=== PATIENT | male | born 1985 | race Caucasian/White ===

== ENCOUNTER 2018-10-06 22:39 | Emergency (ER) | payer MEDICAID ==
--- NOTE | 2018-10-06 22:41 | EDPHY ---
H & P Source: Patient, Police, RN/MD, EMS Exam Limitations: No limitations - Personal History Tetanus Vaccine Date: 2013 - Medical/Surgical History Hx Asthma: No Hx Chronic Respiratory Disease: No Hx Diabetes: No Hx Cardiac Disease: No Hx Renal Disease: No Hx Cirrhosis: No Hx Alcoholism: No Hx HIV/AIDS: No Hx Splenectomy or Spleen Trauma: No Other PMH: Chronic back pain - Social History Smoking Status: Heavy smoker Time Seen by Provider: 10/06/18 22:40 HPI/ROS: HPI: This is a 33-year-old male who presents with Chief Complaint: Numbness in both arms, panic attack Location: Both arms Quality: Numbness Duration: Prior to arrival Signs and Symptoms: +shortness of breath at rest, + shortness of breath on exertion, no cough, no chest pain, no palpitations, no lower extremity edema, no wheezing, no orthopnea, no paroxysmal nocturnal dyspnea, no fever, no injury/ trauma, no hemoptysis, + carpal pedal spasms Timing: Acute Severity: Moderate Context: Patient presents accompanied by [facility] Police for medical clearance. Patient was pulled over this evening while running to the store to buy cigarettes. His tail light was out. Patient reports that he felt fine until he got into the back of the police car. Reports that his hands were handcuffed behind his back and both of his arms went numb. He reports that the numbness and tingling are slowly improving. Patient then reports that he started to feel lightheaded and dizzy and short of breath. He started to breathe rapidly. Patient denies any fever, upper respiratory symptoms, cough, lower extremity edema. No recent long distance travel. Grandmother cardiac history but patient is not sure what type. Reports he had a diagnosis of hypertension while in nursing home but no longer takes blood pressure medications. Patient asking for a drink of water during the interview. Modifying Factors: None Comment: ROS: A comprehensive 10 system review of systems is otherwise negative aside from elements mentioned in the history of present illness. MEDICAL/SURGICAL/SOCIAL HISTORY: Medical history: Chronic back pain, anxiety disorder, panic attacks Surgical history: Denies Social history: Heavy tobacco user. Uses alcohol. . CONSTITUTIONAL: Anxious, mild distress, male who appears nontoxic in appearance, awake and alert HEENT: Atraumatic and normocephalic, PERRL, EOMI. Nares patent; no rhinorrhea; no nasal mucosal edema. Tympanic membranes clear. Oropharynx clear, no exudate and moist pink mucosa. Airway patent. No lymphadenopathy. No meningismus. Cardiovascular: Normal S1/S2, tachycardia, regular rhythm, without murmur rub or gallop. PULMONARY/CHEST: Symmetrical and nontender. Clear to auscultation bilaterally. Good air movement. No accessory muscle usage. Tachypnea. ABDOMEN: Soft, nondistended, nontender, no rebound, no guarding, no peritoneal signs, no masses or organomegaly. No CVAT. EXTREMITIES: 2/2 pulses, bilateral upper extremity strength 5/5, no deformities , no clubbing, no cyanosis or edema. NEUROLOGICAL: no focal neuro deficits. GCS 15. Cranial nerves 2-12 grossly intact. SKIN: Warm and dry, tattoos covering body, no erythema. no rash. Good capillary refill. (Tessie Carvajal) Constitutional: Initial Vital Signs Temperature (C) 36.4 C 10/06/18 22:40 Heart Rate 104 H 10/06/18 22:40 Respiratory Rate 18 10/06/18 22:40 Blood Pressure 143/94 H 10/06/18 22:40 O2 Sat (%) 100 10/06/18 22:40 O2 Delivery Mode Room Air Allergies/Adverse Reactions: amoxicillin Allergy (Mild, Verified 10/06/18 22:50) Rash Home Medications: Medication Instructions Recorded NK [No Known Home Meds] 06/21/16 Medical Decision Making ED Course/Re-evaluation: Vital signs reviewed and show tachycardia upon arrival. EKG my read shows sinus tachycardia but no acute ischemic changes, no heart block, no arrhythmias. No indication for chest xray or laboratory studies. Monitored for 2 hr in the emergency room. Sleeping the majority of the time and asking for something to eat. Blood pressure and heart rate improved. Appropriate for discharge to senior care. This patient was seen under the supervision of my secondary supervising physician. I evaluated care for this patient with attending. Discussed this patient with Dr. Bernal. (Tessie Carvajal) PHYSICIAN DOCUMENTATION: The patient was evaluated and managed by the Physician Rail Setter. My co- signature indicates that I have reviewed this chart and I agree with the findings and plan of care as documented. I am the secondary supervising physician. (Svitlana Bernal) Differential Diagnosis: Shortness of breath including but not limited to pulmonary infectious process, COPD, asthma, pulmonary embolus and congestive heart failure. (Tessie Carvajal) - Data Points Medications Given: Discontinued Medications Ibuprofen (Motrin) 800 mg PO EDNOW ONE Stop: 10/06/18 23:50 Last Admin: 10/06/18 23:53 Dose: 800 mg Departure - Departure Disposition: Home, Routine, Self-Care Clinical Impression: Anxiety hyperventilation Condition: Good Instructions: Hyperventilation (ED) Additional Instructions: Patient is medically cleared to be discharged to senior care. See [facility] for follow-up instructions and prescriptions. Referrals: [facility],. [Clinic] - Follow Up Only If Needed
[2018-10-06] MEDS ORDERED: IBUPROFEN 800 MG TAB PO ONE (23:49)
[2018-10-06 23:56] VITALS: BP 131/91
--- NOTE | 2018-10-07 04:35 | CPEKG ---
Test Reason : OPEN Blood Pressure : / mmHG Vent. Rate : 106 BPM Atrial Rate : 106 BPM P-R Int : 140 ms QRS Dur : 106 ms QT Int : 339 ms P-R-T Axes : 061 054 059 degrees QTc Int : 451 ms Sinus tachycardia Confirmed by Svitlana Bernal ([id number]) on 10/07/2018 4:34:56 AM Referred By: Svitlana Bernal Confirmed By:Svitlana Bernal
== END 2018-10-06 23:55 | disposition home or self-care (01) ==
LOC: EDUNIT#
DX: F45.8 Other somatoform disorders (principal)